=== PATIENT | female | born 1955 | race Caucasian/White ===

== ENCOUNTER → 2017-09-11 | Outpatient (CLI) | payer OTHER ==
--- NOTE | 2017-09-11 13:42 | MAMMOGRAPHY REPORT ---
BILATERAL DIGITAL SCREENING MAMMOGRAM WITH CAD: 09/11/2017 CLINICAL HISTORY: Routine screening. Patient has no complaints. TECHNIQUE: Current study was also evaluated with a Computer Aided Detection (CAD) system. Bilateral CC and MLO views were obtained. COMPARISON: Comparison is made to exams dated: 09/10/2016 mammogram, 09/07/2015 mammogram, 4 mammogram, 11/07/2014 aspiration, 09/19/2014 ultrasound, and 09/06/2014 mammogram - [facility] [place]. BREAST COMPOSITION: The tissue of both breasts is almost entirely fatty. FINDINGS: No suspicious masses, calcifications, or areas of architectural distortion are noted in ei ther breast. There has been no significant interval change compared to prior exams. IMPRESSION: ACR BI-RADS CATEGORY 1: NEGATIVE There is no mammographic evidence of malignancy. A 1 year screening mammogram is recommended. The pa tient will receive written notification of the results. Approximately 10% of breast cancers are not detected with mammography. A negative mammographic report should not delay biopsy if a clinically suggestive mass is present. Myrtle Leon M.D. ah/:09/11/2017 10:22:13 [employer] Charger: Yashira Cifuentes, [facility] letter sent: Normal 1/2 BI-RADS Code: ACR BI-RADS Category 1: Negative
== END | disposition home or self-care (01) ==
LOC: C.MAMM 08:39
PROVIDERS: ATTEND Family Medicine
DX: Z12.31 Encounter for screening mammogram for malignant neoplasm of breast (principal)

== ENCOUNTER → 2018-06-18 | Outpatient (CLI) | payer OTHER | END | disposition home or self-care (01) | LOC: C.RDSM 10:44 | PROVIDERS: ATTEND Physical Medicine & Rehabilitation Sports Medicine | DX: M25.561 Pain in right knee (principal); M25.562 Pain in left knee ==

== ENCOUNTER → 2018-06-29 | Outpatient (CLI) | payer OTHER ==
--- NOTE | 2018-06-29 11:54 | DIAGNOSTIC IMAGING REPORT ---
L LOWER EXT JOINT WITHOUT CLINICAL HISTORY: LEFT KNEE PAIN pain TECHNIQUE: MRI multi axial acquisition COMPARISON STUDY: None FINDINGS: Signal characteristics the osseous structures are unremarkable. No significant bone marrow replacing process. The medial and lateral collateral ligament structures are intact. Anterior and posterior cruciate ligaments are intact. There is a 4 x 1.5 cm popliteal cyst posterior to the medial joint compartment. There are findings of significant thinning and deterioration of the patellar articulating surface. Medial and lateral patellar retinaculum is intact. Several venous varicosities are identified anterior and superior to the patella. Evaluation of medial and lateral joint compartment shows considerable degenerative change and articular surface thinning of the medial as well as lateral femoral condyles. The medial meniscus shows generalized deterioration of the meniscal substance. There are findings of mild apical truncation. Considerable increase in signal is identified throughout the bulk of the medial meniscus. The lateral meniscus demonstrates mild degenerative signal characteristics although well-defined meniscal tear is not felt to be present. There are findings of moderate degenerative thinning of the articular services of the lateral joint compartment. IMPRESSION: 1. Considerable degenerative change medial joint compartment including considerable deterioration of the substance of the medial meniscus. 2. Mild/moderate chondromalacia patella. 3. Popliteal cyst posterior to the medial joint compartment measuring 4 x 1.5 cm 4. Mild degenerative changes lateral joint compartments. The above report was generated using voice recognition software. It may contain grammatical, syntax or spelling errors. Electronically signed by: Esdras Newton M.D. 06/29/2018 11:52 AM Dictated Date/Time: 06/29/2018 11:46 AM
== END | disposition home or self-care (01) ==
LOC: C.MRI 10:43
PROVIDERS: ATTEND Physical Medicine & Rehabilitation Sports Medicine
DX: M17.11 Unilateral primary osteoarthritis, right knee (principal); M25.562 Pain in left knee; M22.42 Chondromalacia patellae, left knee; M71.22 Synovial cyst of popliteal space [Baker], left knee; M25.561 Pain in right knee

== ENCOUNTER → 2018-07-02 | Outpatient (CLI) | payer OTHER | END | disposition home or self-care (01) | LOC: C.LAB1850 09:04 | PROVIDERS: ATTEND Physical Medicine & Rehabilitation Sports Medicine | DX: M25.561 Pain in right knee (principal); M17.11 Unilateral primary osteoarthritis, right knee; M25.562 Pain in left knee ==